=== PATIENT | male | born 1970 | race Caucasian/White ===

== ENCOUNTER 2023-03-04 16:49 | Emergency (ER) | payer BC, SELFPAY ==
[2023-03-04] VITALS (20 sets, daily range): BP systolic 115–158; BP diastolic 78–93; PULSE 64–80; RESP 10–27; TEMP 36.5; O2SAT 94–97
--- NOTE | 2023-03-04 17:08 | CT_ITS ---
[address] [address] Patient Name: MYLES WOOD MRN: [id number] date: 1970 Sex: M Assigned Patient Location: ER Current Patient Location: ED.MAIN Accession/Order Number: [id number] Exam Date: 03/04/2023 17:25 Report Date: 03/04/2023 18:20 At the request of: ETHAN BUNN Procedure: CT angio chest CTA CHEST. INDICATION: Pulmonary embolism. COMPARISON: None available. TECHNIQUE: CT pulmonary angiogram. Initially, limited axial non-contrast images through chest obtained to establish proper bolus timing. Subsequently, contrast enhanced axial CT images were obtained through the chest. Axial, sagittal and coronal reformatted maximum intensity projection images and / or 3D volume rendered images created. FINDINGS: PULMONARY ARTERIES: No intraluminal filling defects within the central or segmental pulmonary arteries to suggest pulmonary embolism.. Normal RV:LV ratio (<1). AORTA: The thoracic aorta diameter is normal without aneurysm or dissection. LUNGS: Lungs are clear bilaterally. No pleural effusions.. No pneumothorax. LYMPH NODES: No enlarged mediastinal lymph nodes by CT criteria. There are calcified mediastinal lymph nodes likely from old granulomatous disease. HEART: Heart size is normal. No pericardial effusion. UPPER ABDOMEN: Images of the upper abdomen demonstrate no abnormality. MUSCULOSKELETAL: No acute osseous abnormality. CT/CT angio chest IMPRESSION: 1. No pulmonary thromboembolic disease. No aortic aneurysm or dissection. 2. No acute airspace disease. Electronically authenticated by: EDMUND ORDONEZ Date: 03/04/2023 18:20
--- NOTE | 2023-03-04 17:08 | ECG_ITS ---
[facility] Test Date: 2023-03-04 Pat Name: Shorty Talamantes Department: Room: - Gender: Male Border Inspector: : 1970 Requested By: CONCHITA ALICEA Order Number: [id number] Reading MD: DENNIS MARCH Measurements Intervals [place] Rate: 71 P: 34 NV: 160 QRS: 34 QRSD: 104 T: 36 QT: 412 QTc: 435 Interpretive Statements 1100 Sinus rhythm 9110 normal ECG No previous ECG available for comparison Electronically Signed On 03-04-2023 20:06:36 EDT by DENNIS MARCH
--- NOTE | 2023-03-04 17:09 | ED_ITS ---
HPI - Chest Pain General Chief Complaint: Chest Pain Stated Complaint: CHEST PAIN Time Seen by Provider: 03/04/23 17:03 Source: patient Mode of arrival: walk-in Limitations: no limitations History of Present Illness HPI narrative: patient is a 52-year-old male who presents to the emergency department for the evaluation of intermittent chest pain for the past 2-3 weeks. He reports occasional stabbing pain in the midsternal area without radiation. he denies shortness of breath. He has had no fevers. He states he has had minimal ALLERGY- type congestion and nonproductive coughing. He has had no swelling in his legs. He was diagnosed with a postop deep vein thrombosis in his right lower extremity three months ago and took one month of Xarelto. He is not currently anticoagulated. He has never smoked. He had an unremarkable stress test ten years ago. He has no immediate family history of coronary artery disease under the age of fifty. He does not take any medications for diabetes, cholesterol, high blood pressure. Risk Factors Coronary artery disease risk factors: none Pulmonary embolism risk factors: history of deep vein thrombosis Related Data Home Medications Medication Instructions Recorded Confirmed No Known Home Medications 03/04/23 03/04/23 Allergies Allergy/AdvReac Type Severity Reaction Status Date / Time No Known Drug Allergies Allergy Verified 03/04/23 16:52 Review of Systems ROS Constitutional Denies: fever or chills Cardiovascular Reports: chest pain Respiratory Reports: cough Gastrointestinal Denies: nausea or vomiting Musculoskeletal Denies: back pain Integumentary/Breast Denies: rash Neurological Denies: headache [facility] Medical History (Updated 03/04/23 @ 19:11 by STEVEN Gutierrez) Blood clot in leg Social History Smoking status: Never smoker Exam Narrative Exam Narrative: Gen.: Awake, alert, in no distress Head: Normocephalic, atraumatic ENT: Moist mucous membranes Respiratory: No respiratory distress, lungs clear bilaterally Cardio: Regular rate and rhythm Extremities: Moves extremities equally, no pedal edema Psych: Normal mood and affect Neuro: No focal neuro deficit Skin: Warm, dry, intact Constitutional Vital Signs, click to edit/add: Last Vital Signs Temp 97.7 F 03/04/23 16:52 Pulse 64 03/04/23 19:14 Resp 14 10/16/23 19:14 BP 130/78 03/04/23 19:14 Pulse Ox 95 03/04/23 19:14 O2 Del Method Room Air 03/04/23 16:52 Course Vital Signs Vital signs: Vital Signs Temperature 97.7 F 03/04/23 16:52 Pulse Rate 76 03/04/23 16:52 Respiratory Rate 18 03/04/23 16:52 Blood Pressure 158/93 H 03/04/23 16:52 Pulse Oximetry 97 03/04/23 16:52 Oxygen Delivery Method Room Air 03/04/23 16:52 Temperature 97.7 F 03/04/23 16:52 Pulse Rate 64 03/04/23 19:14 Respiratory Rate 14 03/04/23 19:14 Blood Pressure 130/78 03/04/23 19:14 Pulse Oximetry 95 03/04/23 19:14 Oxygen Delivery Method Room Air 03/04/23 16:52 MDM - Chest Pain MDM Narrative Medical decision making narrative: lab studies including two negative troponins are within normal limits. CT Angio of the chest with no evidence of PE. patient was stable vital signs, no EKG changes. I discussed the case with his PCP, Dr. Goss and he will see the patient for outpatient management. He did not require any narcotic pain medication, he was treated with aspirin in the Emergency Room. Return to the Emergency Room if sympptoms change or worsen. Medical Records Data Attestation: I reviewed the patient's medical records. Lab Data Attestation: I reviewed the patient's lab results. Labs: Lab Results 03/04/23 03/04/23 Range/Units 17:05 19:08 WBC 9.1 (4.0-11.0) 10^3/uL RBC 5.35 (4.70-6.10) 10^6/uL Hgb 16.1 (14.0-18.0) g/dL Hct 47.9 (42.0-54.0) % MCV 89.5 (80.0-94.0) fL MCH 30.1 (25.9-34.0) pg MCHC 33.6 (29.9-35.2) g/dL RDW 13.8 (11.0-15.0) % Plt Count 234 (150-450) 10^3/uL MPV 10.1 (9.5-13.5) fL Neut % (Auto) 65.7 (43.0-75.0) % Lymph % (Auto) 24.9 (20.5-60.0) % [place] % (Auto) 7.2 (1.7-12.0) % Eos % (Auto) 1.3 (0.9-7.0) % Baso % (Auto) 0.5 (0.2-2.0) % Neut # (Auto) 6.0 (1.4-6.5) 10^3/uL Lymph # (Auto) 2.3 (1.2-3.8) 10^3/uL [place] # (Auto) 0.7 (0.3-0.8) 10^3/uL Eos # (Auto) 0.1 (0.0-0.7) 10^3/uL Baso # (Auto) 0.1 (0.0-0.1) 10^3/uL Abs Immat Gran (auto) 0.04 H (0.00-0.03) 10^3/uL Imm/Tot Granulo (auto) 0.4 (0.0-0.5) % PT 10.9 (9.0-11.6) sec INR 1.03 APTT 25.3 (22.3-36.2) sec Sodium 137 (136-145) mmol/L Potassium 4.1 (3.5-5.1) mmol/L Chloride 103 (98-107) mmol/L Carbon Dioxide 24.4 (21.0-32.0) mmol/L Anion Gap 13.7 BUN 16.0 (7.0-18.0) mg/dL Creatinine 0.93 (0.70-1.30) mg/dL Est GFR ( Amer) >60 (>=60) Est GFR (Non-Af Amer) >60 (>=60) BUN/Creatinine Ratio 17.2 Glucose 84 (74-106) mg/dL Calcium 9.2 (8.5-10.1) mg/dL Total Bilirubin 0.3 (0.2-1.0) mg/dL AST 31 (15-37) U/L ALT 46 (16-63) U/L Alkaline Phosphatase 73 (46-116) U/L Troponin I High Sens 12.9 12.7 (4.0-76.1) pg/mL NT-Pro-B Natriuret Pep 40.0 (<=900.0) pg/mL Total Protein 7.4 (6.4-8.2) g/dL Albumin 3.9 (3.4-5.0) g/dL Globulin 3.5 g/dL Albumin/Globulin Ratio 1.[address] scan - chest: Attestation: I have reviewed the pertinent imaging results. Radiologist's impression: Procedure: CT angio chest CTA CHEST. INDICATION: Pulmonary embolism. COMPARISON: None available. TECHNIQUE: CT pulmonary angiogram. Initially, limited axial non-contrast images through chest obtained to establish proper bolus timing. Subsequently, contrast enhanced axial CT images were obtained through the chest. Axial, sagittal and coronal reformatted maximum intensity projection images and / or 3D volume rendered images created. FINDINGS: PULMONARY ARTERIES: No intraluminal filling defects within the central or segmental pulmonary arteries to suggest pulmonary embolism.. Normal RV:LV ratio (<1). AORTA: The thoracic aorta diameter is normal without aneurysm or dissection. LUNGS: Lungs are clear bilaterally. No pleural effusions.. No pneumothorax. LYMPH NODES: No enlarged mediastinal lymph nodes by CT criteria. There are calcified mediastinal lymph nodes likely from old granulomatous disease. HEART: Heart size is normal. No pericardial effusion. UPPER ABDOMEN: Images of the upper abdomen demonstrate no abnormality. MUSCULOSKELETAL: No acute osseous abnormality. IMPRESSION: 1. No pulmonary thromboembolic disease. No aortic aneurysm or dissection. 2. No acute airspace disease. Electronically authenticated by: EDMUND ORDONEZ Date: 03/04/2023 18:20 ECG Data Attestation: I personally reviewed and interpreted this ECG as follows: (normal sinus rhythm at a rate of seventy-one, no acute ST elevation, no ectopy. EKG reviewed by attending physician) ECG interpretation date: 03/04/23 ECG interpretation time: 17:11 Heart Score History: Moderately Suspicious ECG: Normal Age: >45-<65 years Risk Factors: 1 or 2 Risk Factors Troponin: <Normal Limit Total Heart Score Recommendations & Risks:: 3 Discharge Plan Discharge Chief Complaint: Chest Pain Clinical Impression: Chest pain Patient Disposition: Home, Self-Care Time of Disposition Decision: 19:11 Condition: Good Prescriptions / Home Meds: No Action No Known Home Medications Instructions: Chest Pain (ED) Stand Alone Forms: Portal Instructions Referrals: CONCHITA GOSS [Primary Care Provider] - As soon as possible
[2023-03-04 17:18] LABS: Basophils Absolute Auto 0.1 10^3/uL (0.0-0.1); Basophils Percent Auto 0.5 % (0.2-2.0); Eosinophils Absolute Auto 0.1 10^3/uL (0.0-0.7); Eosinophils Percent Auto 1.3 % (0.9-7.0); Hematocrit 47.9 % (42.0-54.0); Hemoglobin 16.1 g/dL (14.0-18.0); Immature Granulocytes Abs Auto 0.04 10^3/uL (0.00-0.03); Immature Granulocytes Pct Auto 0.4 % (0.0-0.5); Lymphocytes Absolute Auto 2.3 10^3/uL (1.2-3.8); Lymphocytes Percent Auto 24.9 % (20.5-60.0); Mean Corpuscular HGB Conc 33.6 g/dL (29.9-35.2); Mean Corpuscular Hemoglobin 30.1 pg (25.9-34.0); Mean Corpuscular Volume 89.5 fL (80.0-94.0); Mean Platelet Volume 10.1 fL (9.5-13.5); Monocytes Absolute Auto 0.7 10^3/uL (0.3-0.8); Monocytes Percent Auto 7.2 % (1.7-12.0); Neutrophils Percent Auto 65.7 % (43.0-75.0); Platelet Count 234 10^3/uL (150-450); Red Blood Count 5.35 10^6/uL (4.70-6.10); Red Cell Distribution Width 13.8 % (11.0-15.0); White Blood Count 9.1 10^3/uL (4.0-11.0)
[2023-03-04] MEDS: ASPIRIN 81 MG TAB.CHEW 162 MG PO (17:21)
[2023-03-04 17:36] LABS: INR 1.03; Partial Thromboplastin Time 25.3 sec (22.3-36.2); Prothrombin Time 10.9 sec (9.0-11.6)
[2023-03-04 17:43] LABS: Alanine Aminotransferase 46 U/L (16-63); Albumin Globulin Ratio 1.1; Albumin Level 3.9 g/dL (3.4-5.0); Alkaline Phosphatase 73 U/L (46-116); Anion Gap 13.7; Aspartate Amino Transferase 31 U/L (15-37); BUN Creatinine Ratio 17.2; Bilirubin Total 0.3 mg/dL (0.2-1.0); Calcium 9.2 mg/dL (8.5-10.1); Carbon Dioxide 24.4 mmol/L (21.0-32.0); Chloride 103 mmol/L (98-107); Estimated GFR (African America >60 (>=60); Estimated GFR (Non-African Ame >60 (>=60); Globulin 3.5 g/dL; Glucose 84 mg/dL (74-106); Potassium 4.1 mmol/L (3.5-5.1); Sodium 137 mmol/L (136-145); Total Protein 7.4 g/dL (6.4-8.2); Troponin I High Sensitivity 12.9 pg/mL (4.0-76.1)
[2023-03-04 19:40] LABS: Troponin I High Sensitivity 12.7 pg/mL (4.0-76.1)
== END 2023-03-04 19:45 | disposition home or self-care (01) ==
PROVIDERS: Physician Assistant; Emergency Provider Emergency Medicine Emergency Medical Services; PCP Family Medicine
DX: R07.9 Chest pain, unspecified (principal); Z86.718 Personal history of other venous thrombosis and embolism
CPT/HCPCS: 36415; 71275; 80053; 83880; 84484; 85025; 85610; 85730; 93005; 99285; Q9967

== ENCOUNTER 2023-05-18 11:30 | Outpatient (OUT) | payer BC, SELFPAY ==
--- NOTE | 2023-05-18 | US_ITS ---
The [address] [address] Patient Name: MYLES WOOD MRN: [id number] date: 1970 Sex: M Assigned Patient Location: [facility] Current Patient Location: [facility] Accession/Order Number: [id number] Exam Date: 05/18/2023 12:40 Report Date: 05/18/2023 14:27 At the request of: CONCHIAT ALICEA Procedure: US venous doppler LE LT ULTRASOUND LEFT LOWER EXTREMITY COLOR VENOUS DUPLEX HISTORY: Swelling. COMPARISON: None. PROCEDURE: Duplex ultrasound and Doppler images were obtained of the left lower extremity. Venous duplex examination performed using B-mode, color flow and spectral analysis. FINDINGS: There is normal color flow and compressibility seen in the visualized deep venous structures of the left lower extremity with no evidence for thrombosis seen. There are normal venous Doppler waveforms. There is no compression of a mid mid to distal left calf short saphenous vein. US/US venous doppler LE LT IMPRESSION: No evidence for DVT. Superficial vein thrombosis in the mid to distal left calf. Electronically authenticated by: YASHIRA OAKLEY Date: 05/18/2023 14:27
== END 2023-05-18 11:31 | disposition home or self-care (01) ==
LOC: RAD 11:33
PROVIDERS: PCP Family Medicine; Visit Provider Family Medicine
DX: M79.605 Pain in left leg (principal)
CPT/HCPCS: 93971